=== PATIENT | male | born 1980 | race Two or more races ===

== ENCOUNTER 2022-06-16 12:34 | Emergency (ER) | payer OTHER ==
[~2022-06-16] VITALS: Ht 165.1 cm; Wt 70.5 kg
[2022-06-16] MEDS ORDERED: IOHEXOL 300 MG/ML 100ML BOTTLE IJ ONE (15:09)
[2022-06-16 16:29] VITALS: BP 126/86
== END 2022-06-16 18:18 | disposition home or self-care (01) ==
LOC: EEVIPCON 12:34 → ER 12:34
DX: D17.0 Benign lipomatous neoplasm of skin and subcutaneous tissue of head, face and neck (principal)
CPT/HCPCS: 71260; 99285; Q9967

== ENCOUNTER → 2023-06-22 | Day surgery (SDC) | payer OTHER ==
[~2023-06-22] VITALS: Ht 167.6 cm; Wt 68.0 kg
[~2023-06-22] MED LIST: GLYCOPYRROLATE 0.2 MG/ML 1ML VIAL ONE; HEPARIN SODIUM (PORCINE) 5000 UNITS/ML 1ML VIAL ONE; HEPARIN SODIUM (PORCINE) 5000 UNITS/ML 1ML VIAL SC ONE; HYDROmorphone HCL 2 MG/ML VL/or syr IV PRN; KETAMINE HCL 10 ML ONE; KETOROLAC TROMETH 30 MG/ML 1ML VIAL IV ONE; LIDOCAINE 1% HCL (LOCAL ANESTH.) INJ 20ML MDV ONE; MIDAZOLAM HCL 2MG/2ML 2ml VIAL (1mg/ml) ONE; ONDANSETRON HCL 4 MG/2 ML VIAL ONE; PROPOFOL 10 MG/ML 20 ML IV ONE; ceFAZolin 1GM VL ONE; ceFAZolin 1GM/50ML 50 ML IV ONE; ePHEDrine SULFATE 50 MG/ML AMP IV ONE
[2023-06-22 10:15] VITALS: RESP 12; TEMP 97.8; O2SAT 97
[2023-06-22 10:45] VITALS: BP 119/63; PULSE 79; RESP 16; O2SAT 97
== END | disposition home or self-care (01) ==
LOC: SUR 06:50 → EEVIPCON 08:30
DX: L72.3 Sebaceous cyst (principal); D23.4 Other benign neoplasm of skin of scalp and neck
CPT/HCPCS: 11423; J0690; J1644; J2001; J2250; J2405; J2704